=== PATIENT | female | born 1960 | race Caucasian/White ===

== ENCOUNTER 2022-12-02 12:54 | Outpatient (AMB) | payer BC, SELFPAY ==
--- NOTE | 2022-12-02 12:56 | MHC.OFFWIV ---
Intake Vital Signs 12/02/22 13:04 Height 5 ft 4 in Weight 162 lb BMI 27.8 BP 112/68 Blood Pressure Location Lt brachial Position Sitting Pulse 87 Pulse Source Pulse Oximeter Temp 97.6 F Temp Source Temporal Artery Scan Pulse Oximetry (%) 97 Oxygen Delivery Method Room Air Intake Visit Reasons: EP ?UTI Intake Note: Pt is here c/o frequent urination with a little burning. Patient Tobacco Use Status: Never used Tobacco Allergies No Known Allergies Allergy (Verified 12/02/22 13:03) Do you need a note to return to daycare/school/sports/work: No HPI HPI Comments History of Present Illness Details This is a 62-year-old female who presents to the office today for sick visit. Patient complaining of dysuria and increased urinary frequency/urgency x2 days. She denies any fevers or chills. She denies any flank or back pain. She denies any abdominal pain or nausea/vomiting/diarrhea. Patient states she had a colonoscopy the day prior to her symptom onset. [facility] Social History Patient Tobacco Use Status: Never used Tobacco Review of Systems Const All systems reviewed & are unremarkable except as noted in HPI and below Reports no additional complaints Eyes Reports no additional complaints ENT Reports no additional complaints Card Reports no additional complaints Resp Reports no additional complaints GI Reports no additional complaints Reports no additional complaints Musc Reports no additional complaints Skin/Breast Reports system reviewed and no additional complaints, except as documented Neuro Reports no additional complaints Psych Reports no additional complaints Endo Reports no additional complaints Felipe/Lymph Reports no additional complaints Aller/Immun Reports no additional complaints Physical Exam Vital Signs: Last Vital Signs Temp 97.6 F 12/02/22 13:04 Pulse 87 12/02/22 13:04 BP 112/68 12/02/22 13:04 Pulse Ox 97 12/02/22 13:04 Oxygen Delivery Method Room Air 12/02/22 13:04 BMI result Body Mass Index 27.8 Const General: cooperative, healthy appearing, no acute distress and well developed Orientation/consciousness: patient oriented x3 HEENT Head: Yes normal to inspection Ears: hearing grossly normal bilaterally General nose exam: Normal external nose present Face and sinus: Yes normal facial exam Mouth: Normal oral and palatal mucosa present Eyes General: appearance normal, both eyes and all related structures Pupils: Equal, round and reactive pupils present EOM: EOMs intact bilaterally Resp Effort & Inspection: normal respiratory effort and no respiratory distress Auscultation: clear to auscultation bilaterally Cardio Rate: regular rate Rhythm: regular rhythm Heart sounds: no gallops, no murmurs and no rubs Peripheral pulses: Peripheral pulses 2+ throughout GI Inspection: No distended Palpation (GI): Soft to palpation and nontender Auscultation: normal bowel sounds General: Yes no CVA tenderness Back/Spine/Pelvis Back: no CVA tenderness Skin General skin exam: no rashes or lesions noted Neuro General: patient oriented x3 Cranial nerves: Yes CN's II-XII intact bilaterally and Yes Equal, round and reactive pupils present Gait exam (Neuro): Normal gait present Motor exam (neuro): 5/5 motor strength present throughout Extrem General: Yes normal to inspection, Yes full ROM and Yes no clubbing, cyanosis or edema Psych Appearance: grossly normal Mental Status: mental status grossly normal Results AMB Urinalysis, Automated UA Leukoctes 500 Nicolas/uL Last Edit by Julia Martinez CMA on 12/02/22 13:09 UA Nitrite Negative Last Edit by Julia Martinez CMA on 12/02/22 13:09 UA Urobilinogen 0.2 mg/dL Last Edit by Julia Martinez CMA on 12/02/22 13:09 UA Protein 0 mg/dL Last Edit by Julia Martinez CMA on 12/02/22 13:09 UA pH 6.0 Last Edit by Julia Martinez CMA on 12/02/22 13:09 UA Blood 10 Martinez/uL Last Edit by Julia Martinez CMA on 12/02/22 13:09 UA Specific [place] 1.010 Last Edit by Julia Martinez CMA on 12/02/22 13:09 UA Ketone Negative Last Edit by Julia Martinez CMA on 12/02/22 13:09 UA Bilirubin 0 mg/dL Last Edit by Julia Martinez CMA on 12/02/22 13:09 UA Glucose 0 mg/dL Last Edit by Julia Martinez CMA on 12/02/22 13:09 Assessment & Plan Assessment & Plan (1) UTI (urinary tract infection): Code(s): N39.0 - Urinary tract infection, site not specified Plan: This is a 62-year-old female presenting to the office today complaining of urinary symptoms x2 days. Urinalysis shows positive leukocyte esterase consistent with an acute uncomplicated urinary tract infection. Patient's vital signs are stable and her physical exam is benign. She is overall nontoxic appearing. She has no CVA tenderness to suggest pyelonephritis. Patient is safe to be discharged home. She was sent home on p.o. trimethoprim sulfamethoxazole twice daily x7 days as well as p.o. phenazopyridine 200 mg 3 times daily as needed x 3 days. Patient instructed to follow-up here or proceed directly to the emergency room if she were to develop fever/chills, flank/back pain, hematuria, nausea/vomiting, or persistent/worsening symptoms. Patient verbalizes her understanding and she is in agreement with the plan. Orders: Orders AMB Urinalysis Automated Today Z13.9 - Encounter for screening, unspecified Warner Head MD Medications: New sulfamethoxazole-trimethoprim 800-160 mg (Bactrim DS) 1 tab PO BID 14 tabs 0RF KOURTNEY Sterling phenazopyridine 200 mg PO TID PRN 9 tabs 0RF pain KOURTNEY Sterling Coding Level of Care Code Est Pt Level 3 (96464) Diagnoses UTI (urinary tract infection) N39.0
[2022-12-02 13:04] VITALS: BP 112/68; PULSE 87; TEMP 36.4; O2SAT 97; BMI 27.8
== END 2022-12-02 13:38 | disposition home or self-care (01) ==
PROVIDERS: Visit Provider Physician Assistant Medical
DX: N39.0 Urinary tract infection, site not specified (principal); R30.0 Dysuria
CPT/HCPCS: 81003; 99213

== ENCOUNTER 2024-05-21 03:09 | Emergency (ER) | payer MEDICARE, OTHER, SELFPAY ==
[2024-05-21 03:18] VITALS: BP 148/82; PULSE 101; O2SAT 98
[2024-05-21 03:21] VITALS: BP 130/64; PULSE 95; RESP 16; TEMP 36.8; O2SAT 97; BMI 27.5
--- OUTSIDE RECORDS SUMMARY | 2024-05-21 03:54 | XMS_ITS | Encounter Summary ---
Author Organization [facility] Address [address] [place] [address] Care Team Providers Care Laceworker Name Role Phone Yasemin Jolley PA-C Primary Care Provi bennett Umang Chappell MD Unavailable [phone] Encounter Details Date Type Department Care Team (Late st Contact Info) Description 08/29/2023 Scanned Document [address] [phone] Primary Care, Scan Social History Tobacco Use Types Packs/Day Years Used Date Smoking Tobacco: Former Cigarettes Smokeless Tobacco: Former Alcohol Use Standard Drinks/Week Comments Yes 0 (1 standard drink = 0.6 oz pur e alcohol) PHQ-2 Answer Date Recorded PHQ-2 Total Score 1 08/03/2023 Physical Activity Answer Date Recorded On average, how many days pe r week do you engage in moderate to strenuous exercise (like a brisk walk)? 5 days 08/02/2023 On average, how many minutes do you exercise per day at this level? 40 min 08/02/2023 Sex and Gender Information Value Date Recorded Sex Assigned at Female 08/02/2023 5:00 PM EDT Gender Identity Female 08/02/2023 5:00 PM EDT Sexual Orientation Heterosexual (straight) 08/01 5:00 PM EDT documented as of this encounter Plan of Treatment Upcoming Encounters Date Type Department Care Team (Late st Contact Info) Description 08/06/2024 11:00 AM EDT Office Visit [address] [phone] Yasemin Jolley PA-C [address] [place] [address] documented as of this encounter Visit Diagnoses Not on filedocumented in this encounter Care Teams Laceworker Relationship Specialty Start Date End Date Yasemin Jolley PA-C [address] [place] [address] PCP - General Internal Medicine 05/28/23 Umang Chappell MD [address] [place] [address] Gastroenterology 08/03/23 Arsalan Weaver Physician Endocrinology 07/10/23 documented as of this encounter
--- OUTSIDE RECORDS SUMMARY | 2024-05-21 03:54 | XMS_ITS | Encounter Summary ---
Author Organization [facility] Address [address] [place] [address] Care Team Providers Care Yard Hostler Name Role Phone Yasemin Jolley PA-C Primary Care Provi bennett Umang Chappell MD Unavailable [phone] Encounter Details Date Type Department Care Team (Late st Contact Info) Description 10/25/2023 Scanned Document [address] [phone] Physical Therapy, Scan Social History Tobacco Use Types Packs/Day [...] Description 08/06/2024 11:00 AM EDT Office Visit [address] [phone] Yasemin Jolley PA-C [address] [place] [address] documented as of this encounter Visit Diagnoses Not on filedocumented in this encounter Care Teams Yard Hostler Relationship Specialty Start Date End Date Yasemin Jolley PA-C [address] [place] [place] [address] PCP - General Internal Medicine 05/28/23 Umang Chappell MD [address] [place] [address] Gastroenterology 08/03/23 Arsalan Weaver Physician Endocrinology 07/10/23 documented as of this encounter
--- OUTSIDE RECORDS SUMMARY | 2024-05-21 03:54 | XMS_ITS | Encounter Summary ---
Author Organization [facility] Address [address] [place] [address] Care Team Providers Care Visitor Use Assistant Name Role Phone Yasemin Jolley PA-C Primary Care Provi bennett Umang Chappell MD Unavailable [phone] Encounter Details Date Type Department Care Team (Late st Contact Info) Description 11/24/2023 Scanned Document [facility] [address] [place] [phone] Yasemin Jolley PA-C [address] [place] [address] Social History Tobacco Use Types Packs/Day Years [...] Description 08/06/2024 11:00 AM EDT Office Visit [facility] [place] [address] [place] [phone] Yasemin Jolley PA-C [address] [place] [place] [address] documented as of this encounter Visit Diagnoses Not on filedocumented in this encounter Care Teams Visitor Use Assistant Relationship Specialty Start Date End Date Yasemin Jolley PA-C [address] [place] [place] [address] PCP - General Internal Medicine 05/28/23 Umang Chappell MD [address] [place] [address] Gastroenterology 08/03/23 Arsalan Weaver Physician Endocrinology 07/10/23 documented as of this encounter
--- OUTSIDE RECORDS SUMMARY | 2024-05-21 03:54 | XMS_ITS | Encounter Summary ---
Author Organization [facility] Address [address] [place] [address] Care Team Providers Care Corporate Travel Consultant Name Role Phone Yasemin Jolley PA-C Primary Care Provi bennett Umang Chappell MD Unavailable [phone] Encounter Details Date Type Department Care Team ([facility] Contact Info) Description 07/05/[address] [facility]Y SCAN Urology, Scan Social History Tobacco Use Types Packs/Day Years Used Date Smoking Tobacco: Former Cigarettes Smokeless Tobacco: Former Alcohol Use Standard Drinks/Week Comments Yes 0 (1 standard drink = 0.6 oz pur e alcohol) PHQ-2 Answer Date Recorded PHQ-2 Total Score 0 05/29/2023 Sex and Gender Information Value Date Recorded Sex Assigned at Female 08/02/2023 5:00 PM EDT Gender Identity Female 08/02/2023 5:00 PM EDT Sexual Orientation Heterosexual (straight) 08/01 5:00 PM EDT documented as of this encounter Plan of Treatment Upcoming Encounters Date Type Department Care Team (Late Contact Info) Description 08/06/2024 11:00 AM EDT Office Visit [facility] [address] [facility] [address] [place] [phone] Yasemin Jolley PA-C [address] [place] [address] documented as of this encounter Visit Diagnoses Not on filedocumented in this encounter Care Teams Corporate Travel Consultant Relationship Specialty Start Date End Date Yasemin Jolley PA-C [address] [place] [address] PCP - General Internal Medicine 05/28/23 Umang Chappell MD [address] [place] [address] Gastroenterology 08/03/23 Arsalan Weaver Physician Endocrinology 07/10/23 documented as of this encounter
--- OUTSIDE RECORDS SUMMARY | 2024-05-21 03:54 | XMS_ITS | Encounter Summary ---
Author Organization [facility] Address [address] [place] [address] Care Team Providers Care Consumer Insights Intern Name Role Phone Yasemin Jolley PA-C Primary Care Provi bennett Umang Chappell MD Unavailable [phone] Encounter Details Date Type Department Care Team (Late st Contact Info) Description 09/25/2023 Scanned Document [address] [phone] Endocrinology, Scan Social History Tobacco Use Types Packs/Day [...] Description 08/06/2024 11:00 AM EDT Office Visit [address] [phone] Yasemin Jloley PA-C [address] [place] [address] documented as of this encounter Visit Diagnoses Not on filedocumented in this encounter Care Teams Consumer Insights Intern Relationship Specialty Start Date End Date Yasemin Jolley PA-C [address] [place] [address] PCP - General Internal Medicine 05/28/23 Umang Chappell MD [address] [place] [address] Gastroenterology 08/03/23 Arsalan Weaver Physician Endocrinology 07/10/23 documented as of this encounter
--- OUTSIDE RECORDS SUMMARY | 2024-05-21 03:54 | XMS_ITS | Encounter Summary ---
Author Organization [facility] Address [address] [place] [address] Care Team Providers Care Beading Sawyer Name Role Phone Yasemin Jolley PA-C Primary Care Provi bennett Umang Chappell MD Unavailable [phone] Encounter Details Date Type Department Care Team (Late st Contact Info) Description 09/01/2023 Scanned Document [facility] Physical Therapy, Scan Social History Tobacco Use [...] Description 08/06/2024 11:00 AM EDT Office Visit [address] [phone] Yasemin Jolley PA-C [address] [place] [address] [phone] documented as of this encounter Visit Diagnoses Not on filedocumented in this encounter Care Teams Beading Sawyer Relationship Specialty Start Date End Date Yasemin Jolley PA-C [address] [place] [address] PCP - General Internal Medicine 05/28/23 Umang Chappell MD [address] [place] [address] Gastroenterology 08/03/23 Arsalan Weaver Physician Endocrinology 07/10/23 documented as of this encounter
--- OUTSIDE RECORDS SUMMARY | 2024-05-21 03:54 | XMS_ITS | Encounter Summary ---
Author Organization [facility] Address [address] [place] [address] Care Team Providers Care River Rafting Guide Name Role Phone Yasemin Jolley PA-C Primary Care Provi bennett Umang Chappell MD Unavailable [phone] Encounter Details Date Type Department Care Team (Late st Contact Info) Description 12/12/2023 Scanned Document [facility] [address] [place] [address] Rheumatology, Scan Social History Tobacco Use Types Packs/Day [...] Description 08/06/2024 11:00 AM EDT Office Visit [address] [place] [phone] Yasemin Jolley PA-C [address] [place] [address], [place] [address] documented as of this encounter Visit Diagnoses Not on filedocumented in this encounter Care Teams River Rafting Guide Relationship Specialty Start Date End Date Yasemin Jolley PA-C [address] [place] [address] PCP - General Internal Medicine 05/28/23 Umang Chappell MD [address] [place] [address] Gastroenterology 08/03/23 Arsalan Weaver Physician Endocrinology 07/10/23 documented as of this encounter
--- OUTSIDE RECORDS SUMMARY | 2024-05-21 03:54 | XMS_ITS | Encounter Summary ---
Author Organization [facility] [place] [facility] Address [address] [place] [address] Care Team Providers Care Digital Media Strategist Name Role Phone Pcp, No Primary Care Provider Unavailela e Yasemin Jolley PA-C Primary Care Provi bennett Umang Chappell MD Unavailable [phone] Encounter Details Date Type Department Care Team (Late st Contact Info) Description 05/11/2023 Scanned Document [facility] DERMATOLOGY SCAN Dermatology, Scan Social History Tobacco Use Types Packs/Day Years Used Date Smoking Tobacco: Never Assessed Sex and Gender Information Value Date Recorded Sex Assigned at Female 08/02/2023 5:00 PM EDT Gender Identity Female 08/02/2023 5:00 PM EDT Sexual Orientation Heterosexual (straight) 08/01 5:00 PM EDT documented as of this encounter Plan of Treatment Upcoming Encounters Date Type Department Care Team (Late st Contact Info) Description 08/06/2024 11:00 AM EDT Office Visit [address] [place] [phone] Yasemin Jolley PA-C [address] [place] [address] documented as of this encounter Visit Diagnoses Not on filedocumented in this encounter Care Teams Digital Media Strategist Relationship Specialty Start Date End Date Pcp, No PCP - General General Medicine 05/10/23 05/27/23 Yasemin Jolley PA-C [address] [place] [address] PCP - General Internal Medicine 05/28/23 Umang Chappell MD [address] [place] [address] Gastroenterology 08/03/23 Arsalan Weaver Physician Endocrinology 07/10/23 documented as of this encounter
--- OUTSIDE RECORDS SUMMARY | 2024-05-21 03:54 | XMS_ITS | Encounter Summary ---
Author Organization [facility] Address [address] [place] [address] Care Team Providers Care Cook Helper Juice Name Role Phone Yasemin Jolley PA-C Primary Care Provi bennett Umang Chappell MD Unavailable [phone] Encounter Details Date Type Department Care Team (Late st Contact Info) Description 08/04/2023 Scanned Document [facility] DERMATOLOGY SCAN Dermatology, Scan Social [...] Description 08/06/2024 11:00 AM EDT Office Visit [address] [phone] Yasemin Jolley PA-C [address] [place] [address] documented as of this encounter Visit Diagnoses Not on filedocumented in this encounter Care Teams Cook Helper Juice Relationship Specialty Start Date End Date Yasemin Jolley PA-C [address] [place] [address] PCP - General Internal Medicine 05/28/23 Umang Chappell MD [address] [place] [address] Gastroenterology 08/03/23 Arsalan Weaver Physician Endocrinology 07/10/23 documented as of this encounter
--- OUTSIDE RECORDS SUMMARY | 2024-05-21 03:54 | XMS_ITS | Continuity of Care Document ---
Author Organization [facility] [address] [facility] [address] [place] [address] Phone [phone] Care Team Providers Care Camera Technician Name Role Phone Yasemin Jolley Care Team Information Re ceiver [phone] Problems Active Problems Provider Date [place]oh[place]'s disease Arsalan Weaver M.D. Onset: 04/18/2022 Angelina thyroiditis Arsalan Weaver M.D. On set: 04/18/2022 Social History Type Date Description Comments Sex Unknown Lives With Spouse Tobacco Use Start: Unknown Never Smoked Cigarettes Smoking Status Reviewed: 10/17/22 Never Smoked Cigaret shon ETOH Use Occasionally consumes alcoho l Allergies and adverse reactions Description No Known Drug Allergies Medications Active Medications SIG Qnty Indications Order ing Provider Date Fludrocortisone Acetate0.1mg Tablets Take 1 Tablet By Mouth Every Day 90tabs Arsalan Weaver M.D. 04/18/2022 Sertraline [id number] Tablets Take 1 Tablet By Mouth Every Day Yasemin Jolley, P.A. Atorvastatin [id number] Tablets Take 1 Tablet By Mouth Every Day Yasemin Jolley, P.A. Ropinirole HCL ER2mg Tablets ER 24HR Take 1 Tablet By Mouth Every Day Yasemin Jolley P.A. Sntruqkfwngzzw30nl Tablets Take 1 Tablet In The Morning By Mouth And 1/2 Tablet Before Supper 180tabs Arsalan Weaver M.D. Levothyroxine [id number] Tablets Take 1 Tablet By Mouth Once A Day 1/2 Tablet On Monday 135tabs Arsalan Weaver M.D. [id number] Capsules Take 1 Capsule By Mouth Every Day Scotty Fox, Vital Signs Date Vital Result Comment 03/13/2024 10:13am BP Systolic 110 mmHg BP Diastolic 64 mmHg Heart Rate 72 /min Height 64 inches 5'4 Weight 161.12 lb BMI (Body Mass Index) 27.7 kg/m2 Results Test Acquired Date Facility Test Result H/L Range Note Basic Metabolic Panel (8) 03/13/2024 [facility] Glucose 87 mg/dL 70-99 1 BUN 11 mg/dL 8-27 Creatinine 0.76 mg/dL 0.57-1.0 0 eGFR 87 mL/min/1.7 3 >59 BUN/Creatinine Ratio 14 12-28 Sodium 140 mmol/L 134-144 Potassium 4.8 mmol/L 3.5-5.2 Chloride 101 mmol/L 96-106 Carbon Dioxide, Total 25 mmol/L 20-29 Laboratory test finding 03/13/2024 [facility] Vitamin D, 25-Hydroxy 33.7 ng/mL 30.0-100 .0 2 Phosphorus 3.6 mg/dL 3.0-4.3 PTH, Intact 39 pg/mL 15-65 Calcium 10.6 mg/dL High 8.7-10.3 3 Laboratory test finding 12/02/2022 [facility] TSH With Reflex To FT4 1.44 uIU/mL (0.4-4.2 ) Laboratory test finding 10/18/2022 [facility] TSH With Reflex To FT4 <pending> Laboratory test finding 10/17/2022 [facility] TSH With Reflex To FT4 0.07 uIU/mL Low (0.4-4.2 ) PTH, Intact 42 pg/mL (15-65) Phosphorus 3.3 mg/dL (2.5-4.5 ) Basic Metabolic Panel 10/17/2022 [facility] Glucose 92 mg/dL (70-99) BUN 13 mg/dL (8-23) Creatinine 0.7 mg/dL (0.5-1.0 ) Sodium 143 mmol/L (133-145 ) Potassium 4.2 mmol/L (3.6-5.2 ) Chloride 105 mmol/L (98-107) Bicarbonate 27 mmol/L (22-29) Anion Gap 11 (4-17) Calcium 10.4 mg/dL (8.6-10. 5) Estimated GFR Creatinine 97 ML/MIN/1.7 3M2 4 Laboratory test finding 10/17/2022 [facility] Albumin 4.3 GM/DL (3.4-4.8 ) 25Oh Vitamin D 37.6 NG/ML (20-50 ) Free T4 1.43 ng/dL (0.70-1. 80) Laboratory test finding 05/16/2022 [facility] TSH With Reflex To FT4 0.74 uIU/mL (0.4-4.2 ) Laboratory test finding 04/19/2022 [facility] TSH With Reflex To FT4 <pending> Comprehensive Metabolic Panl 04/18/2022 [facility] Glucose 75 mg/dL (70-99) BUN 16 mg/dL (8-23) Creatinine 0.7 mg/dL (0.5-1.0 ) Sodium 136 mmol/L (133-145 ) Potassium 4.1 mmol/L (3.6-5.2 ) Chloride 101 mmol/L (98-107) Bicarbonate 26 mmol/L (22-29) Anion Gap 9 (4-17) Albumin 4.1 GM/DL (3.4-4.8 ) Calcium 10.1 mg/dL (8.6-10. 5) Bilirubin,Total 0.9 mg/dL (0-1.2 ) Total Protein 6.4 GM/DL (6.2-8.2 ) Ag Ratio 1.8 Ast 21 U/L (0-32) Alk Phos 128 U/L High (35-104) Alt 22 U/L (0-33) Estimated GFR Creatinine 97 ML/MIN/1.7 3M2 5 Laboratory test finding 04/18/2022 [facility] TSH With Reflex To FT4 10.60 uIU/mL High (0.4-4.2 ) Free T4 1.22 ng/dL (0.70-1. 80) 1 A courtesy copy of t his report has been sent to [phone] 2 Vitamin D deficiency has been defined by the [place] of [employer] and an Endocrine Society practice guideline as a level of serum 25-OH vitamin D less than 20 ng/mL (1,2). The Endocrine Society went on to further define vitamin D insufficiency as a level between 21 and 29 ng/mL (2). 1. IOM ([place] of [employer]). 2010. Dietary reference intakes for calcium and D. [place]: The National Academies Press. 2. Maria Ines MF, Zoe PARSONS, Bakari DAY, et al. Evaluation, treatment, and prevention of vitamin D deficiency: an Endocrine Society clinical practice guideline. JCEM. 2010; 96(7):1911-30. 3 Verified by repeat analysis 4 Creatinine based est imated glomerular filtration (eGFR) in adults is calculated using the National Kidney Foundation recommended 2020 CKD-EPI equation. Estimates GFR from serum creatinine, age and sex. 5 Creatinine based est imated glomerular filtration (eGFR) in adults is calculated using the National Kidney Foundation recommended 2020 CKD-EPI equation. Estimates GFR from serum creatinine, age and sex. Procedures Date Code Description Status 10/12/2021 40291 Collection Of Capillary Bloo d Specimen Completed Medical Devices Description No Information Available Encounters Type Date Location Provider Dx Diagnosis Office Visit 03/13/2024 10:00a Main Office Arsalan Weaver M.D. E06.3 Autoimmune thyroiditis E27.1 Primary adrenocortic al insufficiency Assessments Date Code Description Provider 03/13/2024 E06.3 Autoimmune thyroiditis Arsalan Weaver M.D. 03/13/2024 E27.1 [place]'s disease Arsalan Blandon M.D. Plan of Treatment Future Appointment(s):* 09/12/2024 8:15 am - Arsalan Weaver M.D. at Main Office 03/13/2024 - Arsalan Weaver M.D.* E06.3 Autoimmune thyroiditis * E27.1 [place]'s disease Functional Status Description No Information Available Mental Status Description No Information Available Referrals Description No Information Available
--- OUTSIDE RECORDS SUMMARY | 2024-05-21 03:54 | XMS_ITS | Encounter Summary ---
Author Organization [facility] Address [address] [place] [address] Care Team Providers Care Online Retailer Name Role Phone Yasemin Jolley PA-C Primary Care Provi bennett Umang Chappell MD Unavailable [phone] Encounter Details Date Type Department Care Team (Late st Contact Info) Description 08/31/[address] [facility] UROLOGY SCAN Urology, Scan Social History Tobacco [...] Description 08/06/2024 11:00 AM EDT Office Visit [address] [phone] Yasemin Jolley PA-C [address] [place] [phone] documented as of this encounter Visit Diagnoses Not on filedocumented in this encounter Care Teams Online Retailer Relationship Specialty Start Date End Date Yasemin Jolley PA-C [address] [place] [address] PCP - General Internal Medicine 05/28/23 Umang Chappell MD [address] [place] [id number] Gastroenterology 08/03/23 Arsalan Weaver Physician Endocrinology 07/10/23 documented as of this encounter
--- OUTSIDE RECORDS SUMMARY | 2024-05-21 03:54 | XMS_ITS | Encounter Summary ---
Author Organization [facility] Address [address] [place] [id number] Care Team Providers Care Pharmaceutical Detailer Name Role Phone Yasemin Jolley PA-C Primary Care Provi bennett Umang Chappell MD Unavailable [phone] Encounter Details Date Type Department Care Team (Late st Contact Info) Description 03/20/2024 Scanned Document [facility] [address] [place] [address] Endocrinology, Scan Social History Tobacco Use Types Packs/Day Years Used Date Smoking Tobacco: Former Cigarettes Smokeless Tobacco: Former Alcohol Use Standard Drinks/Week Comments Yes 0 (1 standard drink = 0.6 oz pur e alcohol) [facility] Utilities Answer Date Recorded In the past 12 months has [email or web address] electric, gas, oil, or water company threatened to shut off services in your home? No 03/12/2024 Social Connection and Isolat ion Panel [NHANES] Answer Date Recorded In a typical week, how many times do you talk on the phone with family, friends, or neighbors? More than three times a week 03/12/2024 Frequency of Social Gatherin gs with Friends and Family Not on file 03/12/2024 Attends Anabaptism Services Not on file 03/12 Active Member of Clubs or Organizations Not on f ile 03/12/2024 Attends Club or Organization Meetings Not on garcia e 03/12/2024 Marital Status Not on file 03/12/2024 AUDIT-C Answer Date Recorded Q1: How often do you have a drink containing alc ohol? 2-4 times a month 03/12/2024 Q2: How many drinks containi ng alcohol do you have on a typical day when you are drinking? 1 or 2 03/12/2024 Frequency of Binge Drinking Not on file 06/2023 PHQ-2 Answer Date Recorded PHQ-2 Total Score 1 08/03/2023 Hunger Vital Sign Answer Date Recorded Within the past 12 months, y ou worried that your food would run out before you got the money to buy more. Never true 03/12/20 24 Within the past 12 months, t he food you bought just didn't last and you didn't have money to get more. Never true 03/12/2024 PRAPARE - Transportation Answer Date Re corded In the past 12 months, has l ack of transportation kept you from medical appointments or from getting medications? No 06/2023 In the past 12 months, has l ack of transportation kept you from meetings, work, or from getting things needed for daily living? No 03/12/2024 Housing Stability Vital Sign Answer Cristobal e Recorded In the last 12 months, was t here a time when you were not able to pay the mortgage or rent on time? No 03/12/2024 In the past 12 months, how m any times have you moved where you were living? 0 03/12/2024 At any time in the past 12 m [facility], were you homeless or living in a long-term (including now)? No 03/12/2024 Physical Activity Answer Date Recorded On average, how many days pe r week do you engage in moderate to strenuous exercise (like a brisk walk)? 5 days 08/02/2023 On average, how many minutes do you exercise per day at this level? 40 min 08/02/2023 Education Answer Date Recorded What is the highest level of school you have completed or the highest degree you have received? Master's degree (e.g., MA, MS, Edgard, MEd, IT SOLUTIONS ARCHITECT, [employer]) 03/12/2024 Sex and Gender Information Value Date Recorded Sex Assigned at Female 08/02/2023 5:00 PM EDT Gender Identity Female 08/02/2023 5:00 PM EDT Sexual Orientation Heterosexual (straight) 08/01 5:00 PM EDT documented as of this encounter Plan of Treatment Upcoming Encounters Date Type Department Care Team (Late st Contact Info) Description 08/06/2024 11:00 AM EDT Office Visit [place] [address] [facility] [address] [place] [address] Yasemin Jolley PA-C [address] [place] [address] documented as of this encounter Visit Diagnoses Not on filedocumented in this encounter Care Teams Pharmaceutical Detailer Relationship Specialty Start Date End Date Yasemin Jolley PA-C [address] [place] [address] PCP - General Internal Medicine 05/28/23 Umang Chappell MD [address] [place] [id number] Gastroenterology 08/03/23 Arsalan Weaver Physician Endocrinology 07/10/23 documented as of this encounter
--- OUTSIDE RECORDS SUMMARY | 2024-05-21 03:54 | XMS_ITS | Clinical Summary ---
Author Organization [facility] Address [address] [place] [id number] Care Team Providers Care Advanced Practice Nurse Name Role Phone Yasemin Jolley PA-C Primary Care Provi bennett Umang Chappell MD Unavailable [phone] Allergies Active Allergy Reactions Criticality Noted Date Comments Morphine GI Intolerance/Nausea/Vomiting Low 05/28 Medications Medication Sig Dispensed Refills Start Date End Date Status celeCOXIB (CeleBREX) 200 MG capsule Take 1 capsule (200 mg total) by mouth daily. Active hydrocortisone (CORTEF) 10 mg tablet Take 1 tablet (10 mg total) by mouth. 1.5 tabs po in am and 1/2 tab po in pm Active levothyroxine (SYNTHROID, LEVOTHROID) 88 MCG tablet Take 1 tablet (88 mcg total) by mouth daily. Active fludrocortisone (FLORINEF) 0.1 MG tablet Take 1 tablet (0.1 mg total) by mouth daily. Active sertraline (ZOLOFT) 50 MG tabletIndications:Anxie ty Take 1 tablet (50 mg total) by mouth daily. 90 tablet 3 06/02/2023 Active cholecalciferol (CHOLECALCIFEROL) 25 MCG (1000 UT) tablet Take 1 tablet (1,000 Units total) by mouth daily. Active saccharomyces boulardii (FLORASTOR) 250 MG capsule Take 1 capsule (250 mg total) by mouth daily. Active rOPINIRole (REQUIP XL) 2 MG 24 hr tabletIndications:Restl ess leg syndrome Take 1 tablet (2 mg total) by mouth daily. 90 tablet 3 09/26/2023 Active atorvastatin (LIPITOR) 10 MG tabletIndications:Hyper lipidemia, unspecified hyperlipidemia type Take 1 tablet (10 mg total) by mouth daily. 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 05/28/2023 Encounters Date Type Department Care Team Description 03/20/2024 Scanned Document [facility] [address] [place] [address] Endocrinology , Scan 03/14/2024 9:00 AM EST Office Visit [address] [place] [address] Yasemin Jolley PA-C Hyperlipidemia, unspecified hyperlipidemia type (Primary Dx); AWA (obstructive sleep apnea); Anxiety; Recurrent major depressive disorder, in partial remission (HCC); Avon's disease (HCC); 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 03/14/2024 Travel from Last 3 Months Immunizations Name Administration Dates Next Due Pneumococcal Conjugate 20-Valent 08/03/2023 Tdap 07/18/2022 Family History Medical History Relation Name Comments Cancer, Bladder Brother Coronary artery disease Brother Coronary artery disease Father Cancer, Bladder Mother Coronary artery disease Mother Relation Name Status Comments Brother Father Mother Social History Tobacco Use Types Packs/Day Years Used Date Smoking Tobacco: Former Cigarettes Smokeless Tobacco: Former Tobacco Cessation:Counseling Given: Not Answered Alcohol Use Standard Drinks/Week Comments Yes 0 (1 standard drink = 0.6 oz pur e alcohol) [facility] Utilities Answer Date Recorded In the past 12 months has [employer], gas, oil, or water [employer] threatened to shut off services in your home? No 03/12/2024 Social Connection and Isolat ion Panel [NHANES] Answer Date Recorded In a typical week, how many times do you talk on the phone with family, friends, or neighbors? More than three times a week 03/12/2024 Frequency of Social Gatherin gs with Friends and Family Not on file 03/12/2024 Attends Scientologist Services Not on file 03/12 Active Member [...] any time in the past 12 m [facility], were you homeless or living in a assisted (including now)? No 03/12/2024 Physical Activity Answer [...] Master's degree (e.g., MA, MS, Edgard, MEd, HAT PRESSER, HANNAH) 03/12/2024 Sex and Gender Information Value Date Recorded Sex Assigned at Female 08/02/2023 5:00 PM EDT Gender Identity Female 08/02/2023 5:00 PM EDT Sexual Orientation Heterosexual (straight) 08/01 5:00 PM EDT Last Filed Vital Signs Vital Sign Reading Time Taken Comments Blood Pressure 118/68 03/14/2024 8:50 AM EST Pulse 89 03/14/2024 8:50 AM EST Temperature 36.1 ??C (97 ??F) 03/14/2024 8:50 AM EST Respiratory Rate 16 03/14/2024 8:50 AM EST Oxygen Saturation 98% 03/14/2024 8:50 AM EST Inhaled Oxygen Concentration - - Weight 73.2 kg (161 lb 6.4 oz) 03/14/2024 8:50 A M EST Height 162.6 cm (5' 4 ) 03/14/2024 8:50 AM EST Body Mass Index 27.7 03/14/2024 8:50 AM EST Plan of Treatment Upcoming Encounters Date Type Department Care Team (Late st Contact Info) Description 08/06/2024 11:00 AM EDT Office Visit [address] [phone] Yasemin Jolley PA-C [address] [place] [address] Health Maintenance Due Date Last Done Comments Hepatitis C Virus Screening 1958 HIV Screening 1971 Physical 1976 Pap Smear (Ages 21-65) 1979 Zoster (Shingles) Vaccine (1 of 2) 2008 DXA Bone Density (Females,Ages 65 and older) 2023 Influenza Vaccine 11/09/2023 COVID-19 Vaccine (2023-2 5 season) 2023 07/14/2020, 06/23/2020 Annual Wellness Visit 08/03/2024 08/03/2023 Mammogram 08/22/2024 08/22/2022 (Previously Completed) Colonoscopy 11/29/2027 11/28/2022 (Previously Completed) DTaP/Tdap/Td Vaccines (2 - T d or Tdap) 07/18/2032 07/18/2022 RSV Vaccine 60 years and older and Patients (1 - 1-dose 75+ series) 2033 Pneumococcal Vaccines 50+ Completed 08/03/2023 Hepatitis B Vaccines Aged Out No long er eligible based on patient's age to complete this topic Care Teams Advanced Practice Nurse Relationship Specialty Start Date End Date Yasemin Jolley PA-C [address] [place] [address] PCP - General Internal Medicine 05/28/23 Umang Chappell MD [address] [place] [id number] Gastroenterology 08/03/23 Arsalan Weaver Physician Endocrinology 07/10/23
[2024-05-21 04:13] LABS: Influenza A PCR NEGATIVE (Negative); Influenza B PCR NEGATIVE (Negative); Resp Syncy Virus RNA Qual PCR NEGATIVE (Negative); SARS COV2 PCR INHOUSE NEGATIVE (Negative)
[2024-05-21] MEDS: Ondansetron ODT 4 MG TAB.RAPDIS TRANSLINGU (04:46)
--- NOTE | 2024-05-21 05:01 | ED_ITS ---
HPI - Nausea/Vomiting/Diarrhea General Chief complaint: Nausea/Vomiting/Diarrhea Stated complaint: DIZZINESS/WEAKNESS/ VOMITTING/DIARRHEA Time Seen by Provider: 05/21/24 03:54 Source: patient Mode of arrival: ambulatory Limitations: no limitations History of Present Illness ED Provider: HPI Narrative: Patient healthy been having nausea vomiting diarrhea since middle of the night had multiple episode poor than 10 of each with diffuse abdominal cramps no bad food intake no recent travel no other family member sick no use of antibiotics lately Related Data Home Medications ?Medication ?Instructions ?Recorded ?Confirmed atorvastatin 10 mg tablet 10 mg PO DAILY 12/02/22 celecoxib 200 mg capsule 200 mg PO DAILY 12/02/22 fludrocortisone 0.1 mg tablet 0.1 mg PO DAILY 12/02/22 hydrocortisone 10 mg tablet 10 mg PO BID 12/02/22 levothyroxine 88 mcg tablet 0 mcg PO 12/02/22 ropinirole 2 mg tablet,extended 2 mg PO DAILY 12/02/22 release 24 hr Previous Rx's ?Medication ?Instructions ?Recorded phenazopyridine 200 mg tablet 200 mg PO TID PRN pain #9 tabs 12/02/22 sulfamethoxazole 800 1 tab PO BID #14 tabs 12/02/22 mg-trimethoprim 160 mg tablet (Bactrim DS) loperamide 2 mg tablet (Imodium 2 mg PO Q6H PRN loose stool #14 05/21/24 A-D) tabs ondansetron 4 mg disintegrating 4 mg PO Q6-8H PRN nausea and 05/21/24 tablet vomiting #14 tabs Allergies Allergy/AdvReac Type Severity Reaction Status Date / Time No Known Allergies Allergy Verified 05/21/24 03:26 Review of Systems 2 Review of Systems: Yes all other systems are reviewed and are negative [facility] Social History Social History Patient Tobacco Use Status: Never used Tobacco Smoked in Last 30 Days: No Use of substances other than those prescribed or required for medical reasons: No Advance Directives: No Physical Exam 2 Vital Signs: Vital Signs: Last Vital Signs Temp 99.9 F 05/21/24 07:05 Pulse 72 05/21/24 07:05 Resp 17 05/21/24 07:05 BP 117/52 L 05/21/24 07:05 Pulse Ox 94 05/21/24 07:05 O2 Del Method Room Air 05/21/24 07:05 BMI result Body Mass Index 27.5 Appearance: Alert. Oriented X3. No acute distress. Eyes: No pallor or icterus ENT: Pharynx normal. Oral Mucosa moist Neck: Normal inspection. Neck supple. CVS: Normal heart rate and rhythm. Pulses normal. Respiratory: No respiratory distress. Equal air entry bilateral, no wheezing/rales/rhonchi Abdomen: Soft and nontender. Bowel sounds are present, no mass palpable, no CVA tenderness Skin: Skin warm and dry. Normal skin color. Normal skin turgor. Extremities: No lower extremity edema. No calf tenderness Neuro: Oriented X 3. No motor deficit. No sensory deficit.No cerebellar signs , cranial nerves II-XII intact Medications Administered Discontinued Medications Generic Name Dose Route Start Last Admin Trade Name Freq PRN Reason Stop Dose Admin Acetaminophen 650 mg 05/21/24 06:20 05/21/24 06:23 Acetaminophen 325 Mg Tablet PO 05/21/24 06:21 650 mg ONCE ONE Administration Sodium Chloride 1,000 mls @ 999 mls/hr 05/21/24 05:14 05/21/24 06:58 Ns IV 05/21/24 06:14 Infused .Q1H1M ONE Infusion Loperamide HCl 2 mg 05/21/24 05:18 05/21/24 05:26 Loperamide Hcl 2 Mg Capsule PO 05/21/24 05:19 2 mg ONCE ONE Administration Ondansetron HCl 4 mg 05/21/24 04:34 05/21/24 04:46 Ondansetron Odt 4 Mg Tab.Rapdis TRANSLINGU 05/21/24 04:35 4 mg ONCE ONE Administration Medical Decision Making Medical Decision Making [facility] Narrative: Patient has acute gastroenteritis likely norovirus feeling much better after IV fluids taking p.o. fluids discharge patient home advised to continue Zofran Imodium and plenty of fluids Lab Data [facility] Lab Attestation statement: I reviewed the patient's lab results. 05/21/24 04:58 05/21/24 04:58 Labs: Lab Results 05/21/24 05/21/24 05/21/24 Range/Units 03:31 04:58 06:11 WBC 8.6 (4.8-10.8) X10*3/uL RBC 5.32 (4.20-5.50) X10*6/uL Hgb 15.6 (12.0-16.0) g/dl Hct 46.3 (37.0-47.0) % MCV 87.0 (80.0-98.0) fL MCH 29.3 (27.0-33.0) pg MCHC 33.7 (31.0-35.0) g/dl RDW 12.6 (11.0-16.0) % Plt Count 188 (160-400) X10*3/uL MPV 10.4 (9.4-12.3) fL Immature Gran % (Auto) 0.2 (0.0-0.4) % Neut % (Auto) 79.5 H (45-73) % Lymph % (Auto) 12.2 L (20-40) % [place] % (Auto) 6.8 (2-11) % Eos % (Auto) 1.2 (0-4) % Baso % (Auto) 0.1 (0-2) % Lymph # (Auto) 1.0 L (1.2-4.9) X10*3/uL [place] # (Auto) 0.6 (0.1-1.2) X10*3/uL Eos # (Auto) 0.1 (0.0-0.4) X10*3/uL Baso # (Auto) 0.0 (0.0-0.2) X10*3/uL Abs Immat Gran (auto) 0.02 (0.00-0.03) X10*3/uL Absolute Neuts (auto) 6.8 (2.0-8.3) x10*3/uL Absolute Nucleated RBC 0.000 (0.0-0.012) X10*3/uL Nucleated RBC % (auto) 0.0 (0.0-0.2) /100WBC Sodium 141 (135-145) mmol/L Potassium 3.8 (3.3-5.1) mmol/L Chloride 103 (96-108) mmol/L Carbon Dioxide 28 (22-29) mmol/L Anion Gap 14 (12-20) BUN 17 H (9-16) mg/dL Creatinine 0.82 (0.5-1.4) mg/dL Estim Creat Clear Calc 65.9 Estimated GFR > 60 Random Glucose 122 H (60-115) mg/dL Calcium 10.8 H (8.4-10.2) mg/dL Total Bilirubin 1.8 H (0.0-1.0) mg/dL AST 27 (5-31) U/L ALT 22 (0-31) U/L Alkaline Phosphatase 130 H (39-117) U/L Total Protein 8.6 H (6.5-8.0) g/dL Albumin 4.7 (3.5-5.0) g/dL Urine Color Yellow Urine Appearance Turbid Urine pH 8.5 (5.0-9.0) Ur Specific Ware 1.025 (1.005-1.025) Urine Protein 100 (2+) H (Neg-Trace) mg/dL Urine Glucose (UA) 100 H (Negative) mg/dL Urine Ketones Negative (Negative) mg/dL Urine Blood Moderate (2+) H (Negative) Urine Nitrite Positive H (Negative) Ur Leukocyte Esterase Large (3+) H (Negative) Urine RBC 6-10 H (0-2) /HPF Urine WBC >50 H (0-5) /HPF Ur Squamous Epith Cells 6-10 (0-2) /HPF Urine Bacteria 4+ (None Seen) Hyaline Casts 3-5 (0-2) /LPF Influenza Type A (PCR) NEGATIVE (Negative) Influenza Type B (PCR) NEGATIVE (Negative) RSV RNA Qual (PCR) NEGATIVE (Negative) SARS-CoV-2 RNA (RT-PCR) NEGATIVE (Negative) Discharge Plan Discharge Clinical Impression: Gastroenteritis Patient Disposition: Home, Self-Care Instructions: Gastroenteritis (ED) Additional Instructions: Likely your symptoms are from norovirus as the cause of your gastroenteritis Drink plenty of fluids Take medication for the nausea and vomiting as prescribed Imodium for severe diarrhea not more than 4 tablets a day Report to the ER if worsening of the symptoms Prescriptions: New ondansetron 4 mg tablet,disintegrating 4 mg PO Q6-8H PRN (Reason: nausea and vomiting) Qty: 14 0RF loperamide [Imodium A-D] 2 mg tablet 2 mg PO Q6H PRN (Reason: loose stool) Qty: 14 0RF No Action hydrocortisone 10 mg tablet 10 mg PO BID levothyroxine 88 mcg tablet 0 mcg PO celecoxib 200 mg capsule 200 mg PO DAILY atorvastatin 10 mg tablet 10 mg PO DAILY ropinirole 2 mg tablet extended release 24 hr 2 mg PO DAILY fludrocortisone 0.1 mg tablet 0.1 mg PO DAILY sulfamethoxazole-trimethoprim [Bactrim DS] 800-160 mg tablet 1 tab PO BID Qty: 14 0RF phenazopyridine 200 mg tablet 200 mg PO TID PRN (Reason: pain) Qty: 9 0RF Interventions: ED Discharge Assessment Last Done: 05/21/24 07:05 Print Language: Kazakh
[2024-05-21 05:04] LABS: MANUAL DIFF FLAG NO
[2024-05-21 05:05] LABS: Basophils Percent Auto 0.1 % (0-2); Eosinophils Absolute Auto 0.1 X10*3/uL (0.0-0.4); Eosinophils Percent Auto 1.2 % (0-4); Hematocrit 46.3 % (37.0-47.0); Hemoglobin 15.6 g/dl (12.0-16.0); Imm Gran Abs Auto 0.02 X10*3/uL (0.00-0.03); Imm Gran Pct Auto 0.2 % (0.0-0.4); Lymphocytes Percent Auto 12.2 % (20-40); Mean Corpuscular HGB Conc 33.7 g/dl (31.0-35.0); Mean Corpuscular Hemoglobin 29.3 pg (27.0-33.0); Mean Platelet Volume 10.4 fL (9.4-12.3); Monocytes Absolute Auto 0.6 X10*3/uL (0.1-1.2); Monocytes Percent Auto 6.8 % (2-11); Neutrophils Absolute Auto 6.8 x10*3/uL (2.0-8.3); Neutrophils Percent Auto 79.5 % (45-73); Platelet Count 188 X10*3/uL (160-400); Red Blood Count 5.32 X10*6/uL (4.20-5.50); Red Cell Distribution Width 12.6 % (11.0-16.0); White Blood Count 8.6 X10*3/uL (4.8-10.8)
[2024-05-21 05:23] LABS: Alanine Aminotransferase 22 U/L (0-31); Albumin Level 4.7 g/dL (3.5-5.0); Anion Gap 14 (12-20); Aspartate Amino Transferase 27 U/L (5-31); Bilirubin Total 1.8 mg/dL (0.0-1.0); Blood Urea Nitrogen 17 mg/dL (9-16); Calcium 10.8 mg/dL (8.4-10.2); Carbon Dioxide 28 mmol/L (22-29); Chloride 103 mmol/L (96-108); Creatinine Clr Calc Pharmacy 65.9; Estimated Glomerular Filt Rate > 60; Glucose Random 122 mg/dL (60-115); Potassium 3.8 mmol/L (3.3-5.1); Sodium 141 mmol/L (135-145); Total Protein 8.6 g/dL (6.5-8.0)
[2024-05-21] MEDS: 0.9 % Sodium Chloride 1,000 ML 999 ML IV (05:26)
[2024-05-21] MEDS: Loperamide HCl 2 MG CAPSULE PO (05:26)
[2024-05-21 05:27] LABS: Alkaline Phosphatase 130 U/L (39-117)
[2024-05-21 06:00] VITALS: BP 114/58; PULSE 98; RESP 17; TEMP 37.9; O2SAT 93
[2024-05-21] MEDS: Acetaminophen 325 MG TABLET 650 MG PO (06:23)
[2024-05-21 07:05] VITALS: BP 117/52; PULSE 72; RESP 17; TEMP 37.7; O2SAT 94
== END 2024-05-21 08:00 | disposition home or self-care (01) ==
PROVIDERS: Emergency Provider Internal Medicine; PCP Physician Assistant Medical
DX: K52.9 Noninfective gastroenteritis and colitis, unspecified (principal); R11.2 Nausea with vomiting, unspecified; R42 Dizziness and giddiness; R10.2 Pelvic and perineal pain; Z79.899 Other long term (current) drug therapy; Z03.818 Encounter for observation for suspected exposure to other biological agents ruled out
CPT/HCPCS: 0241U; 36415; 80053; 81001; 85025; 87086; 87088; 87186; 96360; 96361; 99284